=== PATIENT | female | born 1995 | race Caucasian/White ===

== ENCOUNTER 2018-12-25 18:29 | Emergency (ER) | payer OTHER ==
[2018-12-25 18:29] VITALS: BMI 27.3
[2018-12-25 18:33] VITALS: TEMP 97.9
--- NOTE | 2018-12-25 19:03 | C.PDOC ---
History Of Present Illness Patient is a 23 year old female who presents to the ED c/o crampy lower abdominal pelvic pain that is severe and colicky in nature. Patient reports that she just gave 9 months ago and is not known to be . At baseline, julia bryant has chronic constipation but reports that she has been constipated for the past week after developing hemorrhoids following her delivery. Patient denies any nausea, vomiting, diarrhea, or SOB. Time Seen by Provider: 12/25/18 18:47 Chief Complaint (Nursing): Abdominal Pain History Per: Patient History/Exam Limitations: no limitations Current Symptoms Are (Timing): Still Present Quality Of Discomfort: Cramping (lower abdominal pelvic pain that is severe and colicky) Associated Symptoms: denies: Nausea, Vomiting, Diarrhea, Other (SOB) Recent travel outside of the [place]: No Additional History Per: Patient : 2 Para: 1 Past Medical History Reviewed: Historical Data, Nursing Documentation, Vital Signs Vital Signs: Last Vital Signs Temp 97.9 F 12/25/18 18:32 Pulse 81 12/25/18 18:32 Resp 18 12/25/18 18:32 BP 137/85 12/25/18 18:32 Pulse Ox 98 12/25/18 18:32 - Medical History PMH: Hypothyroidism Surgical History: No Surg Hx Family History: States: Unknown Family Hx - Social History Hx Tobacco Use: No Hx Alcohol Use: No Hx Substance Use: No - Immunization History Hx Tetanus Toxoid Vaccination: Yes Hx Influenza Vaccination: No Hx Pneumococcal Vaccination: No Review Of Systems Respiratory: Negative for: Shortness of Breath Gastrointestinal: Positive for: Abdominal Pain (crampy lower abdominal pelvic pain ). Negative for: Nausea, Vomiting, Diarrhea Physical Exam - Physical Exam Appears: Non-toxic, No Acute Distress Skin: Normal Color, Warm, Dry Head: Atraumatic, Normacephalic Oral Mucosa: Moist Neck: Normal ROM, Supple Chest: Symmetrical Cardiovascular: Rhythm Regular Respiratory: Normal Breath Sounds, No Rales, No Rhonchi, No Wheezing Gastrointestinal/Abdominal: Tenderness (mild suprapubic tenderness), Other (belly obese, large panniculus ) Neurological/Psych: Oriented x3, Normal Speech ED Course And Treatment - Laboratory Results Result Diagrams: 12/25/18 19:23 12/25/18 19:23 Lab Interpretation: Normal (qhcg 73,711 H, A+) O2 Sat by Pulse Oximetry: 98 (on RA) Pulse Ox Interpretation: Normal - CT Scan/US US Pregancy Other Rad Studies (CT/US): Read By Radiologist, Radiology Report Reviewed CT/US Interpretation: IMPRESSION: 1. Single living intrauterine . No acute abnormality. 2. The SCOOBY is 08/06/2019. 3. A 1.4 x 1.9 cm left ovarian cyst is noted. Reevaluation Time: 21:04 Reassessment Condition: Unchanged Medical Decision Making Medical Decision Making: Plan: Labs Urinalysis Urinalysis HCG US IUP 8 wks prob acute on chronic constipation laxative tx now laxatives/diet/exercise educated Disposition Doctor Will See Patient In The: Office Counseled Patient/Family Regarding: Studies Performed, Diagnosis - Disposition Disposition: HOME/ ROUTINE Disposition Time: 21:05 Condition: GOOD Forms: [facility] ([place]an) - Clinical Impression Clinical Impression: , Abdominal pain, colicky - Scribe Statement The provider has reviewed the documentation as recorded by the Roger Nelson All medical record entries made by the Mauricioibarabella were at my direction and personally dictated by me. I have reviewed the chart and agree that the record accurately reflects my personal performance of the history, physical exam, medical decision making, and the department course for this patient. I have also personally directed, reviewed, and agree with the discharge instructions and disposition.
[2018-12-25 19:29] LABS: BASO # 0.1 K/uL (0.0-0.2); BASO % 0.6 % (0.0-2.0); EOS # 0.1 K/uL (0.0-0.7); LYMPH # 1.9 K/uL (1.0-4.3); LYMPH % 21.1 % (20.0-40.0); MEAN CORPUSCULAR HEMOGLOBIN 27.2 pg (27.0-31.0); MEAN CORPUSCULAR HGB CONC 32.6 g/dL (33.0-37.0); MEAN PLATELET VOLUME 8.8 fL (7.2-11.7); MONO # 0.4 K/uL (0.0-0.8); MONO % 4.7 % (0.0-10.0); NEUT # 6.7 K/uL (1.8-7.0); NEUT % 72.6 % (50.0-75.0); RBC 4.79 Mil/uL (3.80-5.20); RED CELL DISTRIBUTION WIDTH 14.5 % (11.5-14.5); WHITE BLOOD COUNT 9.2 K/uL (4.8-10.8)
[2018-12-25 19:30] LABS: MEAN CELL VOLUME 83.4 fL (81.0-99.0)
[2018-12-25 19:33] LABS: SQUAMOUS EPITHIAL 8 /hpf (0-5); URINE BACTERIA OCC (<OCC); URINE BILIRUBIN NEGATIVE (NEGATIVE); URINE BLOOD NEGATIVE (NEGATIVE); URINE CLARITY Hazy (Clear); URINE COLOR Amber (YELLOW); URINE GLUCOSE (UA) NORMAL (Normal); URINE LEUKOCYTE ESTERASE TRACE Leu/uL (Negative); URINE PROTEIN 1+ mg/dL (NEGATIVE)
[2018-12-25 19:34] LABS: HCG,QUALITATIVE URINE POSITIVE (NEGATIVE); INR 1.1; PROTHROMBIN TIME 11.8 SECONDS (9.7-12.2)
[2018-12-25 19:48] LABS: ALB/GLOB RATIO 1.3 (1.0-2.1); ALBUMIN 4.1 g/dL (3.5-5.0); ALT/SGPT 16 U/L (9-52); AST/SGOT 21 U/L (14-36); BLOOD UREA NITROGEN 11 mg/dL (7-17); CALCIUM 9.4 mg/dl (8.6-10.4); GFR NON-AFRICAN AMERICAN > 60
[2018-12-25] MEDS ORDERED: Magnesium Citrate Oral SOL (300 ml) PO ONE (21:12)
[2018-12-25 21:58] VITALS: BP 120/70; PULSE 80; RESP 14; O2SAT 99
--- NOTE | 2018-12-26 13:57 | US ---
Date of service: 12/25/2018 Indication: early preg, pelvic pain, no bleeding Comparison: None available Technique: Transabdominal pelvic ultrasound Findings: The uterus measures approximately 9.2 x 6.1 x 6.9 cm. Anteverted. Cervix length measures approximately 3.3 cm. There is a single intrauterine fetus present. 2 mm yolk sac. The gestational sac measures 3.1 cm and is compatible with a gestational age of 8 weeks 0 days. The crown-rump length measures 1.6 cm and is compatible with a gestational age of 8 weeks 0 days. There is heart motion which measured 171 BPM. The right ovary measures 2.9 x 1.7 x 2.2 cm. The left ovary measures 3.6 x 2.7 x 2.5 cm and contains 1.9 x 1.4 x 1.2 cm probable corpus luteal cyst. Blood flow was demonstrated to both ovaries. Impression: Live single intrauterine with estimated gestational age 8 weeks 0 days. heart rate 171 bpm. 1.9 x 1.4 x 1.2 cm probable left ovarian corpus luteal cyst. Advise an anomaly screen at 16-18 weeks gestational age Preliminary impression was provided by [employer].
== END 2018-12-25 21:58 | disposition home or self-care (01) ==
LOC: C.ER 18:29
DX: O26.891 Other specified pregnancy related conditions, first trimester (principal); R10.2 Pelvic and perineal pain; Z3A.08 8 weeks gestation of pregnancy